=== PATIENT | male | born 1985 | race Caucasian/White ===

== ENCOUNTER 2020-09-21 01:13 | Emergency (ER) | payer OTHER ==
[~2020-09-21] VITALS: Ht 175.3 cm; Wt 86.2 kg
[2020-09-21 02:03] LABS: ABSOLUTE NEUTROPHILS 4.8 thou/uL (1.4-8.2); BASOPHILS 0.4 % (0.0-2.0); EOSINOPHILS 1.1 % (0.0-3.0); HEMATOCRIT 50.3 % (42.0-52.0); HEMOGLOBIN 17.1 gm/dL (14.0-18.0); LYMPHOCYTES 26.2 % (24.0-44.0); MCH 30.5 pg (26.0-34.0); MCHC 34.1 g/dL (28.0-37.0); MCV 89.5 fL (80.0-100.0); MONOCYTES 7.7 % (1.0-8.0); PLATELET COUNT 172 thou/uL (150-400); POLYS 64.6 % (36.0-66.0); RBC 5.61 mil/uL (4.50-6.00); WBC 7.5 thou/uL (4.0-11.0)
[2020-09-21 02:06] LABS: CREATININE 1.3 mg/dL (0.7-1.3); POTASSIUM 4.1 mmol/L (3.5-5.1)
[2020-09-21 02:13] LABS: ALBUMIN 4.2 g/dL (3.4-5.0); TOTAL BILIRUBIN 0.2 mg/dL (0.2-1.0); TOTAL PROTEIN 7.6 g/dL (6.4-8.2)
[2020-09-21] MEDS ORDERED: KEPPRA 500 MG500 M1 PO (04:52)
[2020-09-21 05:16] VITALS: BP 117/79
== END 2020-09-21 05:17 | disposition home or self-care (01) ==
LOC: ER 01:13
PROVIDERS: Emergency Medicine
DX: R56.9 Unspecified convulsions (principal)